=== PATIENT | female | born 1990 | race Caucasian/White ===

== ENCOUNTER 2016-02-12 23:00 | Emergency (ER) | payer SELFPAY ==
[~2016-02-12] VITALS: Ht 167.6 cm; Wt 54.4 kg
[2016-02-13 01:44] LABS: BASOPHILS # (AUTO) 0.1 /CMM (0.0-0.2); BASOPHILS % (AUTO) 0.8 % (0.0-2.0); DIFF TOTAL % 100 %; EOSINOPHILS # (AUTO) 0.1 /CMM (0.0-0.7); EOSINOPHILS % (AUTO) 1.1 % (0.0-6.0); HEMATOCRIT 40 % (33-45); HEMOGLOBIN 13.3 g/dL (11.5-14.8); LYMPHOCYTES # (AUTO) 3.1 /CMM (0.8-4.8); LYMPHOCYTES % (AUTO) 41.5 % (20.0-44.0); MEAN CORPUSCULAR HEMOGLOBIN 31 PG (26.0-33.0); MEAN CORPUSCULAR HGB CONC 33 g/dl (31.0-36.0); MEAN CORPUSCULAR VOLUME 94 fL (82-100); MONOCYTES # (AUTO) 0.4 /CMM (0.1-1.30); MONOCYTES % (AUTO) 5.8 % (2.0-12.0); NEUTROPHILS # (AUTO) 3.8 /CMM (1.8-8.9); NEUTROPHILS % (AUTO) 50.8 % (43.0-81.0); PLATELET COUNT (AUTO) 314 /CMM (150-450); WHITE BLOOD COUNT (AUTO) 7.5 K/uL (4.3-11.0)
[2016-02-13 01:51] LABS: ADD UA MICROSCOPIC NO; KETONES,URINE NEGATIVE (NEGATIVE); LEUKOCYTE ESTERASE ,URINE NEGATIVE (NEGATIVE)
[2016-02-13 01:55] LABS: ANION GAP 12 (5-14); CALCIUM, SERUM 9.2 mg/dL (8.5-10.1); CARBON DIOXIDE 29 mmol/L (21-32); CHLORIDE 105 mmol/L (98-107); CREATININE 0.8 mg/dL (0.6-1.3); GFR 86 mL/min (>60); GLUCOSE 93 mg/dL (74-106); POTASSIUM 3.6 mmol/L (3.5-5.1); SODIUM SERUM 142 mmol/L (136-145); UREA NITROGEN, BLOOD 12 mg/dL (7-18)
[2016-02-13 01:56] LABS: CANNABINOID, URINE NEGATIVE (NEGATIVE); PHENCYCLIDINE SCREEN,URINE NEGATIVE (NEGATIVE)
[2016-02-13 02:00] LABS: ALANINE AMINOTRANSFERASE 23 U/L (12-78); ALBUMIN 4.3 g/dL (3.4-5.0); ASPARTATE AMINOTRANSFERASE 19 U/L (15-37); BILIRUBIN,DIRECT 0.1 mg/dL (0.0-0.2); BILIRUBIN,TOTAL 0.5 mg/dL (0.2-1.0); INDIRECT BILIRUBIN 0.4 mg/dL (0.0-1.1); TOTAL PROTEIN, SERUM 7.8 g/dL (6.4-8.2)
[2016-02-13 02:01] LABS: ACETAMINOPHEN 0 ug/ml (10-30); SALICYLATE 2.6 mg/dL (2.8-20.0)
[2016-02-13] MEDS ORDERED: SERT25TA PO (06:20)
[2016-02-13 09:05] VITALS: BP 129/77
== END 2016-02-13 09:06 | disposition home or self-care (01) ==
LOC: ER 23:04
DX: R45.851 Suicidal ideations (principal); F32.9 Major depressive disorder, single episode, unspecified; F31.9 Bipolar disorder, unspecified
CPT/HCPCS: 36415; 80048; 80076; 80305; 81001; 85025; 99284; A4606; G0480; G0481; G0482; Z7610; 81000-TC; G6038-TC; G6039-TC; G6040-TC

== ENCOUNTER 2016-02-13 09:19 | Emergency (ER) | payer SELFPAY ==
[~2016-02-13] VITALS: Ht 167.6 cm; Wt 54.4 kg
[~2016-02-13 09:19] MED LIST: SERT25TA PO
[2016-02-13 10:00] VITALS: BP 116/67
== END 2016-02-13 10:30 ==
LOC: ER 09:20
DX: R45.851 Suicidal ideations (principal); F31.9 Bipolar disorder, unspecified
CPT/HCPCS: 99285; A4606; Z7610